=== PATIENT | female | born 1965 | race Asian ===

== ENCOUNTER → 2017-07-13 | Outpatient (CLI) | payer OTHER | END | disposition home or self-care (01) | LOC: MA 08:11 | PROC: BH02ZZZ Plain Radiography of Bilateral Breasts (ICD-10-PCS; principal; 2017-07-13) | DX: Z12.31 Encounter for screening mammogram for malignant neoplasm of breast (principal) | CPT/HCPCS: G0202 ==

== ENCOUNTER → 2017-07-25 | Outpatient (CLI) | payer OTHER ==
[2017-07-25 13:15] LABS: BASOPHIL % 1.3 % (0-2); PLATELET COUNT 272 x10^3mcL (130-400); RED CELL DISTRIBUTION WIDTH 12.9 % (11.5-14.5)
[2017-07-25 13:33] LABS: ALBUMIN 4.1 g/dL (3.4-5.0); ALKALINE PHOSPHATASE 66 U/L (46-116); ALT/SGPT 49 U/L (14-59); AST/SGOT 31 U/L (15-37); BILIRUBIN DIRECT 0.15 mg/dL (0.0-0.2); BILIRUBIN TOTAL 0.5 mg/dL (0.20-1.00); CALCIUM 9.5 mg/dL (8.5-10.1); CHLORIDE SERUM 105 mmol/L (98-107); CHOLESTEROL 197 mg/dL (<200); CREATININE SERUM 0.6 mg/dL (0.6-1.0); GFR1 > 60 mL/min; GLUCOSE SERUM 118 mg/dL (74-106); POTASSIUM SERUM 4.9 mmol/L (3.5-5.1); SODIUM SERUM 144 mmol/L (136-145); TOTAL PROTEIN, SERUM 7.8 g/dL (6.4-8.2); TRIGLYCERIDES 96 mg/dL (<150)
[2017-07-25 13:35] LABS: CHOLESTEROL/HDL RATIO 3.2; HDL CHOLESTEROL 61 mg/dL (40-60)
== END | disposition home or self-care (01) ==
LOC: LB 12:58
PROVIDERS: Internal Medicine
DX: Z00.00 Encounter for general adult medical examination without abnormal findings (principal)

== ENCOUNTER → 2018-07-24 | Outpatient (CLI) | payer OTHER ==
[2018-07-24 11:19] LABS: ALKALINE PHOSPHATASE 86 U/L (46-116); ALT/SGPT 37 U/L (14-59); AST/SGOT 21 U/L (15-37); BILIRUBIN TOTAL 0.37 mg/dL (0.20-1.00); CALCIUM 8.9 mg/dL (8.5-10.1); CARBON DIOXIDE 31.7 mmol/L (21-32); CHLORIDE SERUM 104 mmol/L (98-107); CREATININE SERUM 0.8 mg/dL (0.6-1.0); GFR1 > 60 mL/min; GLUCOSE SERUM 116 mg/dL (74-106); HDL CHOLESTEROL 56 mg/dL (40-60); POTASSIUM SERUM 4.3 mmol/L (3.5-5.1); SODIUM SERUM 142 mmol/L (136-145); TOTAL PROTEIN, SERUM 7.9 g/dL (6.4-8.2); TRIGLYCERIDES 79 mg/dL (<150)
[2018-07-24 11:28] LABS: CHOLESTEROL 219 mg/dL (<200); CHOLESTEROL/HDL RATIO 3.9
[2018-07-24 12:00] LABS: BASOPHIL % 1.1 % (0-2); PLATELET COUNT 322 x10^3mcL (130-400); RED CELL DISTRIBUTION WIDTH 13.1 % (11.5-14.5)
== END | disposition home or self-care (01) ==
LOC: LB 10:19
PROVIDERS: Internal Medicine
DX: Z00.00 Encounter for general adult medical examination without abnormal findings (principal)

== ENCOUNTER → 2018-07-26 | Outpatient (CLI) | payer OTHER | END | disposition home or self-care (01) | LOC: MA 08:30 | PROC: BH02ZZZ Plain Radiography of Bilateral Breasts (ICD-10-PCS; principal; 2018-07-26) | DX: Z12.31 Encounter for screening mammogram for malignant neoplasm of breast (principal) | CPT/HCPCS: 77067 ==

== ENCOUNTER → 2019-07-28 | Outpatient (CLI) | payer OTHER | END | disposition home or self-care (01) | LOC: MA 09:15 | PROC: BH02ZZZ Plain Radiography of Bilateral Breasts (ICD-10-PCS; principal; 2019-07-28) | DX: Z12.31 Encounter for screening mammogram for malignant neoplasm of breast (principal) | CPT/HCPCS: 77067 ==

== ENCOUNTER → 2019-08-14 | Outpatient (CLI) | payer OTHER ==
[2019-08-14 11:39] LABS: BASOPHIL % 1.6 % (0-2); PLATELET COUNT 312 x10^3mcL (130-400); RED CELL DISTRIBUTION WIDTH 13.1 % (11.5-14.5)
[2019-08-14 11:48] LABS: ALBUMIN 4.1 g/dL (3.4-5.0); ALT/SGPT 44 U/L (14-59); AST/SGOT 25 U/L (15-37); BILIRUBIN DIRECT 0.07 mg/dL (0.0-0.2); BILIRUBIN TOTAL 0.4 mg/dL (0.20-1.00); CALCIUM 9.5 mg/dL (8.5-10.1); CARBON DIOXIDE 31.6 mmol/L (21-32); CHLORIDE SERUM 104 mmol/L (98-107); CREATININE SERUM 0.7 mg/dL (0.6-1.0); GFR1 > 60 mL/min; GLUCOSE SERUM 108 mg/dL (74-106); POTASSIUM SERUM 3.8 mmol/L (3.5-5.1); SODIUM SERUM 140 mmol/L (136-145)
[2019-08-14 11:49] LABS: ALKALINE PHOSPHATASE 82 U/L (46-116); CHOLESTEROL 231 mg/dL (<200); CHOLESTEROL/HDL RATIO 4.4; HDL CHOLESTEROL 53 mg/dL (40-60); TRIGLYCERIDES 80 mg/dL (<150)
[2019-08-15 10:10] LABS: microalbumin:creatinine ratio < 4.3 (0.0-30.0)
== END | disposition home or self-care (01) ==
LOC: LB 10:12
PROVIDERS: Internal Medicine
DX: M25.561 Pain in right knee (principal)

== ENCOUNTER → 2020-09-09 | Outpatient (CLI) | payer OTHER ==
[2020-09-09 12:29] LABS: BASOPHIL % 1.3 % (0.2-1.3); PLATELET COUNT 293 x10^3mcL (179-408)
[2020-09-09 12:57] LABS: ALKALINE PHOSPHATASE 67 U/L (46-116); ALT/SGPT 35 U/L (14-59); AST/SGOT 27 U/L (15-37); BILIRUBIN DIRECT 0.09 mg/dL (0.0-0.2); BILIRUBIN TOTAL 0.37 mg/dL (0.20-1.00); CALCIUM 9.5 mg/dL (8.5-10.1); CARBON DIOXIDE 34.1 mmol/L (21-32); CHLORIDE SERUM 105 mmol/L (98-107); CREATININE SERUM 0.8 mg/dL (0.6-1.0); GFR1 > 60 mL/min; GLUCOSE SERUM 113 mg/dL (74-106); HDL CHOLESTEROL 57 mg/dL (40-60); POTASSIUM SERUM 4.5 mmol/L (3.5-5.1); SODIUM SERUM 141 mmol/L (136-145); TOTAL PROTEIN, SERUM 7.5 g/dL (6.4-8.2); TRIGLYCERIDES 114 mg/dL (<150)
[2020-09-09 12:58] LABS: CHOLESTEROL 219 mg/dL (<200); CHOLESTEROL/HDL RATIO 3.8
== END | disposition home or self-care (01) ==
LOC: RD 11:50 → MA 12:30
PROVIDERS: ATTEND Internal Medicine
DX: Z00.00 Encounter for general adult medical examination without abnormal findings (principal)
CPT/HCPCS: 77067

== ENCOUNTER → 2020-09-30 | Outpatient (REF) | END | disposition home or self-care (01) | LOC: EH 13:37 | DX: R76.11 Nonspecific reaction to tuberculin skin test without active tuberculosis (principal) ==